=== PATIENT | female | born 1935 | race Caucasian/White ===

== ENCOUNTER 2017-03-25 12:21 | Observation (INO) | payer OTHER ==
[~2017-03-25] VITALS: Ht 160 cm; Wt 57.7 kg
[~2017-03-25 12:21] MED LIST: AMLODIPINE BESY10 MG PO; ASPIRIN81 M2 PO; Aspirin Chewable PO; Combigan Ophth Soln LEFT EYE; HYDROCHLOROTH12.5 MG PO; LIPITOR20 MG PO; LOPRESSOR50 MG PO; LOSARTAN-HCTZ1 EAC2 PO; Lipitor PO; Lumigan 0.01% Ophth LEFT EYE; MULTIVITAMIN W1 EACH PO; Martinic PO; Norvasc PO; PLAVIX75 MG PO; Plavix PO; VITAMIN B12-FO1 EACH PO
[2017-03-25 13:20] LABS: HEMATOCRIT 43.8 % (36.0-46.0); MCH 25.4 PG (29.0-34.0); MCHC 32.2 G/DL (30.0-36.0); MCV 78.9 FL (83-99); MEAN PLAT.VOLUME 12.1 uM^3 (9.5-12.4); PLATELET COUNT 223 K/uL (156-360); RBC DIS.WIDTH-CV 17.1 % (11.8-14.6); RBC DIS.WIDTH-SD 47.5 % (39-53); RED BLOOD COUNT 5.55 M/uL (3.80-5.20); WHITE BLOOD COUNT 6.1 K/uL (4.1-10.2)
[2017-03-25 13:29] LABS: CHLORIDE 96 mEq/L (99-109); SODIUM 135 mEq/L (136-147)
[2017-03-25 13:31] LABS: GLUCOSE 89 mg/dL (70-99)
[2017-03-25 13:32] LABS: ANION GAP 14 MEQ/L (2-14)
[2017-03-25 13:35] LABS: GFR ESTIMATE (CALCULATED) 50 mL/min/
[2017-03-25 13:36] LABS: UREA NITROGEN (BUN) 20 mg/dL (9-23)
[2017-03-25 13:42] LABS: TROP-I INTERPRETATION NEGATIVE; TROPONIN-I 0.07 ng/mL (0.0-0.30)
[2017-03-25 14:52] LABS: ADD MIUA? NO; BILIRUBIN NEGATIVE; BLOOD NEGATIVE; COLOR YELLOW ((YELLOW)); GLUCOSE (STRIP) NEGATIVE; KETONES NEGATIVE; LEUKOCYTES NEGATIVE; NITRITE NEGATIVE; PROTEIN (STRIP) 30; SPECIFIC GRAVITY 1.005 (1.000-1.030); UCUL ADDED? NO; UROBILINOGEN 0.2 MG/DL (0.2-1.0)
[2017-03-25] MEDS ORDERED: HYDROCHLOROTH12.5 M3 PO (15:14)
[2017-03-25] MEDS ORDERED: LO-DOSE ASPIRIN81 M2 PO (15:16)
[2017-03-25 15:48] LABS: MAGNESIUM 3.1 mg/dL (1.3-2.7)
[2017-03-25 16:48] VITALS: BP 193/81
[2017-03-25 16:52] VITALS: BP 193/81
[2017-03-25 20:00] VITALS: BP 168/54
[2017-03-25 20:36] LABS: TROP-I INTERPRETATION NEGATIVE; TROPONIN-I 0.07 ng/mL (0.0-0.30)
[2017-03-25 21:00] VITALS: BP 135/48
[2017-03-25 23:55] VITALS: BP 147/64
[2017-03-26 03:20] LABS: TROP-I INTERPRETATION NEGATIVE; TROPONIN-I 0.07 ng/mL (0.0-0.30)
[2017-03-26 04:00] VITALS: BP 147/64
[2017-03-26 05:34] LABS: CHLORIDE 100 mEq/L (99-109); POTASSIUM 4.1 mEq/L (3.7-5.4); SODIUM 136 mEq/L (136-147)
[2017-03-26 05:37] LABS: GLUCOSE 121 mg/dL (70-99)
[2017-03-26 05:38] LABS: ANION GAP 8 MEQ/L (2-14); TOTAL BILIRUBIN 0.5 mg/dL (0.0-1.0)
[2017-03-26 05:40] LABS: ALKALINE PHOSPHATASE 67 IU/L (3-129); GFR ESTIMATE (CALCULATED) 56 mL/min/
[2017-03-26 05:41] LABS: HEMATOCRIT 40.1 % (36.0-46.0); MCH 25.7 PG (29.0-34.0); MCHC 32.2 G/DL (30.0-36.0); MCV 79.9 FL (83-99); MEAN PLAT.VOLUME 11.5 uM^3 (9.5-12.4); PLATELET COUNT 276 K/uL (156-360); RBC DIS.WIDTH-CV 16.9 % (11.8-14.6); RBC DIS.WIDTH-SD 48.7 % (39-53); RED BLOOD COUNT 5.02 M/uL (3.80-5.20); UREA NITROGEN (BUN) 18 mg/dL (9-23); WHITE BLOOD COUNT 5.4 K/uL (4.1-10.2)
[2017-03-26 07:54] VITALS: BP 185/62
[2017-03-26] MEDS ORDERED: CARDIZEM CD,CA240 MG PO (12:18)
[2017-03-26] MEDS ORDERED: ELIQUIS2.5 MG PO (12:18)
[2017-03-26] MEDS ORDERED: LOSARTAN POTASS25 MG PO (12:19)
[2017-03-26 12:49] VITALS: BP 131/63
== END 2017-03-26 14:21 | disposition home or self-care (01) ==
LOC: EME 12:21 → EDOF 14:53 → 4EAST 14:53
PROVIDERS: Emergency Medicine; Internal Medicine
DX: I48.91 Unspecified atrial fibrillation (principal); E78.5 Hyperlipidemia, unspecified; F32.9 Major depressive disorder, single episode, unspecified; I25.10 Atherosclerotic heart disease of native coronary artery without angina pectoris; K21.9 Gastro-esophageal reflux disease without esophagitis; I10 Essential (primary) hypertension; J44.9 Chronic obstructive pulmonary disease, unspecified; R63.4 Abnormal weight loss; Z79.82 Long term (current) use of aspirin; Z87.891 Personal history of nicotine dependence; Z85.038 Personal history of other malignant neoplasm of large intestine; E87.1 Hypo-osmolality and hyponatremia; Z66 Do not resuscitate
CPT/HCPCS: 71020; 71275; 74176; 80048; 80053; 81003; 83735; 84443; 84484; 85027; 93005; 99202; 99281; 99285; G0378; J1160; J7030; J7050